=== PATIENT | female | born 1935 | race Caucasian/White ===

== ENCOUNTER 2017-07-15 22:38 | Emergency (ER) | payer OTHER, BC ==
[2017-07-15] MEDS ORDERED: ROCURONIUM BROMIDE 50 MG/5 ML VIAL IV ONE ×2 (22:46→22:48)
[2017-07-15] MEDS ORDERED: LORazepam 2 MG/ML SDV VIAL ONE (22:46)
[2017-07-15] MEDS ORDERED: RAPID SEQUENCE INTUBATION KIT NR ONE (22:46)
--- NOTE | 2017-07-15 22:50 | PDOC ---
History of Present Illness - General History Source: EMS <Philippe Vargas - Last Filed: 07/15/17 23:31> - History of Present Illness Initial Comments: 07/15/17 22:57 The patient is an 82 year old female, with a significant past medical history of hypotension (as per family), Afib, and breast CA, who presents to the emergency department via ems from home after the patients daughter had failed attempts at reaching her mother on the phone. The patients daughter arrived to the patients home finding her mother down on the floor. As per ems, the patient was found in a left lateral recumbent position with apparent sonorous breathing. Pt was intubated by ems in the field with 7.0 ETT (25 at the teeth). As per ems, the patient was found with tongue trauma, vomit on the floor, and soiled in urine and feces. As per ems, the patient was given 20 of etomidate, 100 of succinate, and a glucose of 207. The patient's blood pressure is 206/52 at this time. Allergies: Sulfa PCP - Dr. Monson <Shraddha Villafuerte - Last Filed: 07/15/17 23:40> - General Stated Complaint: RESPIRATORY/STROKE Time Seen by Provider: 07/15/17 22:41 Past History - Past Medical History Anemia: No Asthma: No Cancer: No Cardiac Disorders: Yes (A FIB) CVA: No COPD: No CHF: No Dementia: No Diabetes: No GI Disorders: No Disorders: No HTN: No Hypercholesterolemia: No Liver Disease: No Seizures: No Thyroid Disease: No - Surgical History Abdominal Surgery: No Appendectomy: Yes Cardiac Surgery: No Cholecystectomy: No Lung Surgery: No Neurologic Surgery: No Orthopedic Surgery: No - Suicide/Smoking/Psychosocial Hx Smoking History: Current every day smoker Have you smoked in the past 12 months: Yes Number of Cigarettes Smoked Daily: 10 'Breaking Loose' booklet given: 10/03/14 Hx Alcohol Use: Yes (WINE WITH DINNER) Drug/Substance Use Hx: No Substance Use Type: None Hx Substance Use Treatment: No <Philippe Vargas - Last Filed: 07/15/17 23:31> <Shraddha Villafuerte - Last Filed: 07/15/17 23:40> - Past Medical History Allergies/Adverse Reactions: Allergies Allergy/AdvReac Type Severity Reaction Status Date / Time Sulfa (Sulfonamide Allergy Severe Swelling Verified 07/15/17 22:58 Antibiotics) Home Medications: Ambulatory Orders Alprazolam [Xanax] 0.25 mg PO PRN PRN 08/28/14 Cholecalciferol (Vitamin D3) [Vitamin D3] 1,000 unit PO DAILY 08/28/14 Metoprolol Succinate [Toprol XL -] 25 mg PO BID 08/28/14 Multivitamins [Multivit ([facility] Formulary)] 1 tab PO DAILY 08/28/14 Loperamide HCl [Imodium -] 2 mg PO PRN PRN 09/07/14 Oxycodone HCl/Acetaminophen [Percocet 5-325 mg Tablet] 1 tab PO Q6H PRN #20 tablet 10/03/14 Review of Systems - Review of Systems Able to Perform ROS?: No (Pt is intubated) <hSraddha Villafuerte - Last Filed: 07/15/17 23:40> *Physical Exam - Physical Exam Comments: 07/15/17 22:58 GENERAL: (+) Well nourished. Sedated and intubated. HEENT: (+) pupils are 2-3mm, equal and slowly reactive. intubated (25 at the teeth with 7.0 ETT), Normocephalic, atraumatic. EOMI. No conjunctival pallor. Sclera are non-icteric. Moist mucous membranes. NECK: Supple. Full ROM. No JVD. Carotid pulses 2+ and symmetric, without bruits. No thyromegaly. No lymphadenopathy. CARDIOVASCULAR: Regular rate and rhythm. No murmurs, rubs, or gallops. Distal pulses are 2+ and symmetric. PULMONARY: (+) intubated (25 at the teeth with 7.0 ETT) with bilateral breath sounds by BVM ABDOMINAL: Soft. Non-distended. No organomegaly. Normoactive bowel sounds. MUSCULOSKELETAL No bony deformities. EXTREMITIES: No cyanosis. No clubbing. No edema. No deformities of extremities. SKIN: Warm and dry. Normal capillary refill. No rashes. No jaundice. NEUROLOGICAL: (+) sedated and paralyzed <Shraddha Villafuerte - Last Filed: 07/15/17 23:40> Heart Score/ECG Review - ECG Intrepretation Comment:: 12/13/17 23:21 ECG was read by Dr. Vargas at 23:16 Impression: sinus rhythm with short WA with frequent and consecutive premature ventricular complexes in a pattern of bigeminy with ventricular escape complexes. Anteroseptal infarct, age undetermined. ST & T wave abnormality, consider inferior ischemia Vent. Rate: 74 bpm WA INterval: 64 ms QTc: 481 ms <Shraddha Villafuerte - Last Filed: 07/15/17 23:40> ED Treatment Course - LABORATORY CBC & Chemistry Diagram: 07/15/17 22:40 07/15/17 22:40 - RADIOLOGY Radiology Studies Ordered: Category Date Time Status HEAD CT WITHOUT CONTRAST [CT] Stat CT Scan 07/15/17 22:42 Ordered CHEST X-RAY PORTABLE* [RAD] Stat Radiology 07/15/17 22:42 Ordered <Philippe Vargas - Last Filed: 07/15/17 23:31> - LABORATORY CBC & Chemistry Diagram: 07/15/17 22:40 07/15/17 22:40 - RADIOLOGY Radiograph Interpretation: EXAM#: TYPE/EXAM: RESULT: [id number] CT/HEAD CT WITHOUT CONTRAST Cranial CT without contrast Clinical information: stroke versus seizure The exam consists of contiguous direct transaxial images as well as reformatted sagittal and coronal imaging. Intravenous contrast was not imaged. An approximately 7.5 x 4.5 cm left temporal lobe acute hemorrhage is seen with contiguous extension medially measuring 4.5 x 3.5 cm. There is resultant severe rightward midline displacement with mild obstructive dilatation of the right lateral ventricle and effacement of the left lateral ventricle. There is diffuse sulcal effacement bilaterally. A 3 x 1.3 cm hemorrhage is seen within the left midbrain with extension into the fourth ventricle. Acute subarachnoid blood is noted within the basal aspects of the sylvian fissures. There is a small left frontal acute subdural hematoma. No calvarial fracture is identified. There is partial imaging of an endotracheal tube in place. Impression: Severe acute intracranial hemorrhage is identified as discussed above. Reported By: Michael Moore MD 07/15/17 2212 <Shraddha Villafuerte - Last Filed: 07/15/17 23:40> Medical Decision Making - Medical Decision Making 07/15/17 23:33 Dr. Vargas: The scribe's documentation has been prepared under my direction and personally reviewed by me in its entirery. I confirm that the note above accurately reflects all work, treatment, procedures, and medical decision making performed by me. Pt with large left sided intracerebral bleed and subarchnoid hemorrhage. Pt still sedated and paralyzed. Pt to be transferred to [facility]. Case accepted by Dr. Dinh (neurosurg) and Dr. Christie (ER). Pt started on Cardene drip to control BP and give Keppra 1gram IV. <Philippe Vargas - Last Filed: 07/15/17 23:31> - Critical Care Time Total Critical Care Time (minutes): 45 Critical Care Statement: The care of this patient involved high complexity decision making to prevent further life threatening deterioration of the patient 's condition and/or to evaluate & treat vital organ system(s) failure or risk of failure. - Medical Decision Making 07/15/17 23:12 [facility] center ([phone]) was called and "code brain" was initiated for interventional neurosurgical attending. 07/15/17 23:17 Dr. Oates, [facility] Neurosurgeon, returned the call and the patients case was discussed. Dr. Oates requests cardine drip and 1g Keppra at this time. I have been informed the accepting physician is Dr. Dinh. 07/15/17 23:25 I was connected with the ED attending for transfer, Dr. Christie, and the patient 's case was discussed. Anticipate transfer in 20 minutes. <Shraddha Villafuerte - Last Filed: 07/15/17 23:40> *DC/Admit/Observation/Transfer - Discharge Dispostion Admit: No - Transfer to Acute Care Facility Receiving Facility: [facility] (Dr. Dinh (neurosurg) Dr. Christie (ER)) <Philippe Vargas - Last Filed: 07/15/17 23:31> - Attestations Scribe Attestion: 07/15/17 23:04 Documentation prepared by Shraddha Villafuerte, acting as medical operations supervisor for Philippe Vargas DO <Shraddha Villafuerte - Last Filed: 07/15/17 23:40> Diagnosis at time of Disposition: Acute spont subarachnoid intracranial hemorrhage assoc w/ hypertension Intracerebral bleed Qualifiers: Intracerebral hemorrhage etiology: traumatic Encounter type: initial encounter Laterality: left - Discharge Dispostion Disposition: TRANSFER ACUTE CARE/OTHER HOSP Condition at time of disposition: Critical - Referrals Referrals: Froylan Monson MD [Primary Care Provider] -
[2017-07-15 22:58] VITALS: TEMP 96; BMI 22.3
[2017-07-15 23:14] LABS: BASOPHIL 0.4 % (0-2.0); MCH 31.8 pg (25.7-33.7); MEAN CELL VOLUME 96.3 fl (80-96); MEAN PLT VOLUME 9.5 fl (7.5-11.1); NEUTROPHILS 86.9 % (42.8-82.8); PLATELET COUNT 230 K/MM3 (134-434); RDW 13.2 % (11.6-15.6); WHITE BLOOD COUNT 16.9 K/mm3 (4.0-10.0)
[2017-07-15] MEDS ORDERED: NICARDIPINE 25 MG in DEXTROSE 5%-WATER - 240 ML IVPB SCH (23:15)
[2017-07-15] MEDS ORDERED: levETIRAcetam 500 MG/5 ML INJECTION VIAL IVPB ONE ×2 (23:20→23:35)
[2017-07-15 23:28] LABS: INR 1.01 (0.82-1.09); PROTHROMBIN TIME (PATIENT) 11.4 SEC (9.98-11.88)
[2017-07-15 23:57] LABS: ALBUMIN 3.9 g/dl (3.4-5.0); ANION GAP 13 (8-16); BILIRUBIN,TOTAL 0.5 mg/dL (0.2-1.0); CALCIUM 8.3 mg/dL (8.5-10.1); CO2 25 mmol/L (21-32); CREATININE 0.6 mg/dL (0.55-1.02); GLUCOSE,RANDOM 179 mg/dL (74-106); SGPT/ALT 25 U/L (12-78); TOT PROT 7.4 g/dl (6.4-8.2)
[2017-07-16] LABS: ALK PHOS 99 U/L (45-117); CPK 116 IU/L (26-192); TROPONIN I 0.22 ng/ml (0.00-0.05)
[2017-07-16 00:03] VITALS: BP 148/58; PULSE 68
[2017-07-16 00:04] LABS: SGOT/AST 28 U/L (15-37)
--- NOTE | 2017-07-16 11:33 | EKG ---
Test Reason : Blood Pressure : / mmHG Vent. Rate : 074 BPM Atrial Rate : 074 BPM P-R Int : 064 ms QRS Dur : 100 ms QT Int : 434 ms P-R-T Axes : 040 061 -60 degrees QTc Int : 481 ms SINUS RHYTHM WITH SHORT RI WITH FREQUENT and consecutive PREMATURE VENTRICULAR COMPLEXES IN A PATTERN OF BIGEMINY WITH VENTRICULAR ESCAPE COMPLEXES ANTEROSEPTAL INFARCT (CITED ON OR BEFORE 25-DEC-2004) ABNORMAL ECG WHEN COMPARED WITH ECG OF 25-DEC-2004 13:58, SIGNIFICANT CHANGES HAVE OCCURRED Confirmed by JOSR BROOKS MD ([id number]) on 07/16/2017 11:32:45 AM Referred By: Confirmed By:JOSR BROOKS MD
== END 2017-07-16 01:19 | disposition short-term general hospital (02) ==
LOC: JER 22:38 → SUPCPDRO 22:38 → JER 07-16 01:19
PROC: 3E033GC Introduction of Other Therapeutic Substance into Peripheral Vein, Percutaneous Approach (ICD-10-PCS; principal; 2017-07-15)
PROC: 3E033NZ Introduction of Analgesics, Hypnotics, Sedatives into Peripheral Vein, Percutaneous Approach (ICD-10-PCS; 2017-07-15)
DX: I60.7 Nontraumatic subarachnoid hemorrhage from unspecified intracranial artery (principal); I10 Essential (primary) hypertension; I48.91 Unspecified atrial fibrillation; F17.210 Nicotine dependence, cigarettes, uncomplicated; Z85.3 Personal history of malignant neoplasm of breast
CPT/HCPCS: 36415; 70450-TC; 71010-TC; 80053; 82550; 83880; 84484; 85025; 85610; 86850; 86900; 86901; 93005; 93010; 99285-25